=== PATIENT | male | born 1995 | race Hispanic/Latino ===

== ENCOUNTER 2016-09-28 08:29 | Emergency (ER) | payer SELFPAY ==
--- NOTE | 2016-09-28 08:44 | ED.REPORT ---
HPI-Extremity Problem Lower Date of Service Sep 28, 2016 ED Provider: Dr. Posadas Pt is a healthy 21 year old male presenting to the ED after falling 10 feet off a roof while playing [employer] just prior to arrival. He complains of left foot pain. He denies any other injury, LOC, hitting his head, or any other symptoms at this time. Nursing Notes Stated Complaint: FALL/ L FOOT INJURY Chief Complaint: Extremity Trauma Nursing Notes Reviewed: Yes Allergies: Coded Allergies: No Known Allergies (Unverified , 09/28/16) Scheduled PRN Naproxen (Naproxen) 500 Mg Tab 500 MG PO BID PRN PRN For Pain General Time Seen by MD: 08:57 Chief Complaint Foot injury left Hx Obtained From: Patient Arrived By: Walk-in Onset Occurred: Just prior to arrival Symptom Duration: Since onset Caused by: Fall from height... (10 ft) Location: : Foot left Quality: Painful Severity: Current: Mild Severity: Maximum: Moderate Recent Healthcare: No recent doctor visit, No recent hospitalization Similar Sx Previous: No Past Medical History Past Medical History denies Past Surgical History denies Smoking History Never Smoker Social History Alcohol Use: Denies alcohol use Drug Use: Denies drug use Ambulatory Status Independent Review of Systems Musculoskeletal: Reports: Extremity pain (Left foot) Neurologic: Denies: Change LOC, Headache Complete sys rev & neg: except as marked. Respiratory: Denies: Shortness of breath GI: Denies: Vomiting Physical Exam Initial Vital Signs Vital Signs (First) Date Time Temp Pulse Resp B/P Pulse Ox O2 Delivery O2 Flow Rate FiO2 09/28/16 08:46 36.7 104 18 164/107 98 Room Air Initial VS: Reviewed General/Constitutional: Well-developed, Well-nourished Head / Eyes: Atraumatic, Normocephalic, PERRL ENT: Mucous membranes moist, Conjunctiva normal, No scleral icterus Neck: Supple, Non-tender, Full range of motion Respiratory: No respiratory distress Abdomen / GI: Soft, Non-tender, No distention Upper Extremities: Vascular intact, Neuro intact, No swelling, No tenderness Skin: Warm, Dry, No cyanosis Neurologic: Alert, Oriented, Nonfocal Psychiatric: Mood/affect normal, Behavior normal, Normal thought content Ankle / Foot: No swelling, No deformity, Neurologic intact, Vascular intact Tender along lateral forefoot Interpretation & Diagnostics X-Ray Interpretation Xray Interpretation: IMPRESSION: Fracture at the head/neck junction of the fifth metatarsal distally. This is only slightly malaligned. Dictated by: Eric Parker M.D. on 09/28/2016 at 9:16 X-Ray Ordered: Foot left Interpretation / Wet Read by: Interpret - Radiologist Re-Eval/Medical Decision Re-Evaluation/Progress : Time of Eval: 09:35 Patient Status: Condition improved Re-Evaluation/Progress Note: Discussed RAD results and plan for discharge. Counseled Regarding: Diagnosis, Lab results, Need for follow-up, When/why to return to ED Discharge & Departure Impression: Primary Impression: Fracture of 5th metatarsal Encounter type: initial encounter Fracture type: closed Salter-Segundo Fracture Type: unspecified configuration Laterality: left Disposition: Home Discharge Condition All VS Reviewed: Yes Condition: Improved Additional Instructions: You fractured the end of your fifth toe. Wear the walking boot and use crutches. Do not put weight on your foot. Use naproxen as needed for pain. Follow-up with orthopedics in about 1 week. Return to the ER as needed for worsening symptoms. Referrals: J Luis Jerome MD [facility] Attestation Portions of this note were transcribed by Shanell Alvarez. I, Dr. Posadas personally performed the history, physical exam and medical decision-making; I reviewed and confirmed the accuracy of the information in the transcribed note. Signed by: Yury Arriola, 09/28/2016 at 0954. copies to: J Luis Jerome MD; [facility] Rajesh Posadas DO Sep 28, 2016 08:44 SHANELL ALVAREZ Sep 28, 2016 09:02
[2016-09-28 08:46] VITALS: BP 164/107; PULSE 104; RESP 18; O2SAT 98
--- NOTE | 2016-09-28 09:19 | DRSVH ---
PROCEDURE: X-RAY LEFT FOOT COMPLETE, MINIMUM THREE VIEWS ([id number]) INDICATIONS: TRAUMA/ FALL OFF ROOF TECHNIQUE: 3 views of the foot were acquired. COMPARISON: None. FINDINGS: Bones: No dislocations. No suspicious bony lesions. There is a fracture across the head/neck junct ion of the fifth distal metatarsal bone. Soft tissues: No tibiotalar joint effusion. Achilles tendon appears normal. IMPRESSION: Fracture at the head/neck junction of the fifth metatarsal distally. This is only slightly malaligned. Dictated by: Eric Parker M.D. on 09/28/2016 at 9:16 Approved by: Eric Parker M.D. on 09/28/2016 at 9:17
[2016-09-28] MEDS ORDERED: NPR500T PO (09:51)
[2016-09-28 09:59] VITALS: BP 130/89; PULSE 96; RESP 16; O2SAT 98
== END 2016-09-28 10:01 | disposition home or self-care (01) ==
LOC: SED 08:29
DX: S92.352A Displaced fracture of fifth metatarsal bone, left foot, initial encounter for closed fracture (principal); W13.2XXA Fall from, out of or through roof, initial encounter; Y93.89 Activity, other specified; Y92.89 Other specified places as the place of occurrence of the external cause; Y99.8 Other external cause status